=== PATIENT | female | born 1935 | race Caucasian/White ===

== ENCOUNTER → 2018-02-27 | Outpatient (CLI) | payer MEDICARE | END | disposition home or self-care (01) | LOC: PETSC 10:17 | DX: C50.812 Malignant neoplasm of overlapping sites of left female breast (principal); R97.8 Other abnormal tumor markers; R59.0 Localized enlarged lymph nodes | CPT/HCPCS: 78815; A9552 ==

== ENCOUNTER → 2018-05-26 | Outpatient (CLI) | payer MEDICARE ==
[~2018-05-26] MED LIST: IOHEXOL 240 MG/ML 50ML VIAL. PO ONE; IOHEXOL 300 MG/ML 100ML VIAL. IV ONE; PROPOFOL 0 ML IV ONE
--- NOTE | 2018-05-26 17:38 | RAD ---
CT of the chest, abdomen and pelvis with contrast, 05/26/2018: History: Breast cancer Multidetector CT imaging was performed following oral and IV administration of contrast. The left breast is surgically absent. Surgical clips are noted in the left axilla. No axillary adenopathy is evident. There is moderate calcific plaquing of the thoracic aorta and its branches. Artifacts arising from the densely opacified superior vena cava partially obscure the right paratracheal and pretracheal regions. The mildly enlarged lymph nodes in this area seen on the CT component of the 02/27/2018 PET/CT exam have regressed. The largest right paratracheal node now measures approximately 9 mm in width compared to a measurement of 14-15 mm at the same level on the previous study. No new mediastinal abnormality is seen. An 8 mm spiculated nodule is present in the left lower lobe as seen on image 37 of series #2. It appears unchanged since 02/27/2018. A small 6 mm nodule seen posteriorly in the right lung base on image 46 of series #2 also appears unchanged. It demonstrates an elongated appearance on the sagittal images suggesting a small scar. No new or enlarging pulmonary abnormality is seen. There is no evidence of pleural fluid. No hepatic abnormality is detected. The gallbladder is unremarkable. The pancreas shows no abnormality. The spleen is of normal size. There is mild bilateral renal cortical scarring. The kidneys are otherwise unremarkable. There is moderate aortoiliac calcific plaquing. No abdominal or pelvic adenopathy is seen. The bowel loops are not dilated. No free fluid is evident in the abdomen or pelvis. Mild scattered degenerative changes are present in the spine. IMPRESSION: 1. Mild mediastinal adenopathy has regressed since 02/27/2018. 2. Unchanged small spiculated left lower lobe pulmonary nodule which could be a scar or a neoplasm. 3. Stable small right basilar density which is probably a scar. 4. No CT evidence of metastatic disease in the abdomen or pelvis. PQRS Compliance Statement: One or more of the following individualized dose reduction techniques were utilized for this examination: 1. Automated exposure control 2. Adjustment of the mA and/or kV according to patient size 3. Use of iterative reconstruction technique
== END | disposition home or self-care (01) ==
LOC: CT 11:00
PROVIDERS: ATTEND Internal Medicine Hematology & Oncology
DX: R59.0 Localized enlarged lymph nodes (principal); R91.1 Solitary pulmonary nodule; Z85.3 Personal history of malignant neoplasm of breast; Z90.12 Acquired absence of left breast and nipple
CPT/HCPCS: 71260; 74177; Q9966; Q9967; J2704

== ENCOUNTER → 2018-09-04 | Outpatient (CLI) | payer MEDICARE ==
[~2018-09-04] MED LIST changes: -IOHEXOL 240 MG/ML 50ML VIAL. PO ONE; -PROPOFOL 0 ML IV ONE
--- NOTE | 2018-09-04 16:10 | RAD ---
EXAM: CT Chest with IV contrast CLINICAL HISTORY: F/U BREAST CA COMPARISON: CT chest 05/26/2018 TECHNIQUE: CT of the chest following the administration of intravenous contrast. Axial, coronal and sagittal reformatted images were generated. ---PQRS compliance statement - One or more of the following individualized dose reduction techniques were utilized for this study: 1. Automated exposure control 2. Adjustment of the mA and/or kV according to patient size 3. Use of iterative reconstruction technique--- FINDINGS: CHEST: The heart is not enlarged. No pericardial effusion. Coronary artery calcifications are seen. Atherosclerotic calcifications of aorta are seen. A few prominent pretracheal lymph nodes are seen measuring up to 6 mm in short axis. No axillary lymphadenopathy. Changes of left axillary dissection are seen. Skin thickening about the right breast is again seen. Changes of left mastectomy are seen. No pleural effusion or pneumothorax. Small hiatal hernia. A 7 mm left lower lobe spiculated lung nodule is stable to prior CT 05/26/2018 when it measured 8 mm. 5 mm right lower lobe lung nodule (image 48) is seen at the posterior costophrenic angle, stable, previously 6 mm. A 3 mm pleural-based left upper lobe lung nodule (image 13) is seen. Visualized Upper abdomen: High density material layering dependently within the gallbladder likely sludge. Hepatic hypoattenuation may be seen with hepatic steatosis. Intermittent bilateral renal cortical thinning, likely from prior renal cortical scarring. Visualized upper abdomen is otherwise unremarkable. Bones: Visualized osseous structures are grossly stable with associated degenerative changes. IMPRESSION: 1. There is right breast skin thickening. This can be correlated with clinical examination. 2. Mild interval decrease in size of the mediastinal lymph nodes. 3. The spiculated 7 mm left lower lobe lung nodule is stable in size. Continued follow-up to establish at least two-year stability is recommended. Electronically signed by: Sami Shen MD (09/04/2018 4:06 PM) [facility]
== END | disposition home or self-care (01) ==
LOC: CT 11:54
PROVIDERS: ATTEND Internal Medicine Hematology & Oncology
DX: C50.912 Malignant neoplasm of unspecified site of left female breast (principal); R91.8 Other nonspecific abnormal finding of lung field; I70.0 Atherosclerosis of aorta; I25.10 Atherosclerotic heart disease of native coronary artery without angina pectoris; Z17.0 Estrogen receptor positive status [ER+]; Z88.8 Allergy status to other drugs, medicaments and biological substances
CPT/HCPCS: 71260; Q9967